=== PATIENT | male | born 1960 | race Caucasian/White ===

== ENCOUNTER 2019-10-16 12:33 | Outpatient (CLI) | payer BC ==
--- NOTE | 2019-10-16 13:08 | RAD ---
EXAM: Right knee 3 views: HISTORY: Knee pain without trauma COMPARISON: None FINDINGS: Degenerative and osteoarthrosis change. Minimal increased density in the suprapatellar recess evidence for some joint fluid. No acute fracture or dislocation or other significant acute osseous abnormality. IMPRESSION: No significant acute process.
== END 2019-10-16 12:34 | disposition home or self-care (01) ==
LOC: SCSRAD 12:33
PROVIDERS: ATTEND Family Medicine
DX: M25.561 Pain in right knee (principal)